=== PATIENT | female | born 1960 | race Caucasian/White ===

== ENCOUNTER → 2016-12-04 | Outpatient (CLI) | payer BC ==
[~2016-12-04] MED LIST: ATOR-54 PO; AZAT50TA17 PO; CHOL1000 PO; CHOL2000 PO; FLUT0.0529 NAE; LDXCR30 TOP; LEVO125T72 PO; LISI10TA PO; MESA1.2T PO; MESA1TAB4 PO; RMCI INJ; TRAM-10 PO; TRAZ100T29 PO; VALA1TAB2 PO; ZOLP6.252 PO
--- NOTE | 2016-12-04 13:20 | DIAGNOSTIC IMAGING REPORT ---
Brain MRA HISTORY: Aneurysm ABNORMAL HEAD MRI TECHNIQUE: 3-D [id number] MRA of the brain was performed without contrast. COMPARISON STUDY: 09/12/2016. 10/03/2016. FINDINGS: The intracranial vasculature demonstrates of the right middle cerebral to be unremarkable. There is mild tortuosity of the vasculature probably accounting for the findings in the patient's prior MRI. Study is negative for aneurysm or significant stenotic process. There is a faint blush of contrast enhancement medial to the right external auditory canal at the right cerebellopontine angle. This appears to be extra-axial and is most likely pulsation artifact. IMPRESSION: No significant stenosis, occlusion, or aneurysm within the [place]. The previously described MRI finding relates to vascular tortuosity. Electronically signed by: Nico Vega M.D. 12/04/2016 1:18 PM
== END | disposition home or self-care (01) ==
LOC: C.MRI 12:28
PROVIDERS: ATTEND Family Medicine
DX: R93.0 Abnormal findings on diagnostic imaging of skull and head, not elsewhere classified (principal)

== ENCOUNTER → 2017-02-20 | Outpatient (CLI) | payer BC ==
[~2017-02-20] MED LIST changes: -MESA1TAB4 PO; +MESA800T6 PO
[2017-02-20 11:00] LABS: BASO % 0.5 %; BASO ABS # 0.03 K/uL (0-0.2); COMPLETE YES; EOS % 2.2 %; HEMATOCRIT 42.3 % (37-47); IG% 0.2 %; LYMPH % 34.3 %; LYMPH ABS # 1.98 K/uL (1.2-3.4); MEAN CELL VOLUME 94.4 fL (80-100); MEAN CORPUSCULAR HEMOGLOBIN 31.7 pg (25-34); MEAN CORPUSCULAR HGB CONC 33.6 g/dl (32-36); MEAN PLATELET VOLUME 10.7 fL (7.4-10.4); MONO % 8.7 %; NEUT % 54.1 %; PLATELET COUNT 263 K/uL (130-400); RED BLOOD COUNT 4.48 M/uL (4.2-5.4); WHITE BLOOD COUNT 5.78 K/uL (4.8-10.8)
[2017-02-20 11:22] LABS: ALB/GLOB RATIO 0.9 (0.9-2); ALKALINE PHOSPHATASE 68 U/L (45-117); ALT/SGPT 92 U/L (12-78); AST/SGOT 53 U/L (15-37); BLOOD UREA NITROGEN 9 mg/dl (7-18); BUN/CREATININE RATIO 10.8 (10-20); C-REACTIVE PROTEIN < 0.29 mg/dl (0-0.29); CALCIUM 9.1 mg/dl (8.5-10.1); CARBON DIOXIDE 30 mmol/L (21-32); CHLORIDE 110 mmol/L (98-107); CREATININE 0.85 mg/dl (0.60-1.20); GLUCOSE 95 mg/dl (70-99); POTASSIUM 4.4 mmol/L (3.5-5.1); SODIUM 145 mmol/L (136-145)
== END | disposition home or self-care (01) ==
LOC: C.LABBC 07:43
PROVIDERS: ATTEND Internal Medicine
DX: K51.90 Ulcerative colitis, unspecified, without complications (principal); R79.82 Elevated C-reactive protein (CRP); M85.80 Other specified disorders of bone density and structure, unspecified site; E55.9 Vitamin D deficiency, unspecified; E03.9 Hypothyroidism, unspecified; E78.5 Hyperlipidemia, unspecified; Z79.52 Long term (current) use of systemic steroids

== ENCOUNTER → 2017-07-22 | Day surgery (SDC) | payer BC ==
[2017-07-10 09:02] VITALS: Ht 160 cm; Wt 77.3 kg
[~2017-07-22] VITALS: Ht 160 cm; Wt 77.3 kg
[~2017-07-22] MED LIST changes: -CHOL2000 PO; +LIDOCAINE HCL 2% 2 ML VIAL (20MG/ML) ONE; -MESA800T6 PO; +PROPOFOL IV EMULSION 10 MG/ML 20 ML VIAL IV ONE; +SODIUM CHLORIDE 0.9% 500ML 500 ML IV ONE
--- NOTE | 2017-07-22 08:41 | Endo History and Physical ---
History & Physical Date of Service: Jul 22, 2017. Chief Complaint: Ulcerative colitis Referring Physician: Dr. Zamora History of Present Illness 57 yo CF who presents for colonoscopy secondary to Ulcerative colitis. Past Medical History Arthritis, Thyroid Disease, Chronic Steroid Use Past Surgical History Hx Cardiac Surgery: No Hx Internal Defibrillator: No Hx Pacemaker: No Hx Abdominal Surgery: Yes (RONDA, APPY AND ABDOMINAL EXPLORATORY SURGERY, CRYOSURGERY) Hx of Implantable Prosthesis: No Hx Post-Op Nausea and Vomiting: No Hx Cancer Surgery: No Hx Thoracic Surgery: No Hx Orthopedic: No Hx Urinary Tract Surgery: No Family History None Social History Smoking Status: Former Smoker Hx Substance Use: No Hx Alcohol Use: Yes (OCCASIONALLY) Allergies Coded Allergies: Gluten (Verified Allergy, Unknown, gluten intolerant, 07/10/17) Sulfa Antibiotics (Unverified Allergy, Unknown, "BLOWS MY INTESTINE INTO PIECES" -PT, 07/10/17) Sulfamethoxazole w/Trimethoprim (Verified Adverse Reaction, Mild, gas, 07/10) Current Medications Reported Home Medications Medications Dose Route/Sig Max Daily Dose Days Date Category Dose Instructions Prinivil (Lisinopril) 10 Mg Tab 10 Mg PO HS 07/10/17 Reported Lialda (Mesalamine) 1.2 Gm Tab 2 Tab PO BID 90 07/10/17 Reported Imuran (Azathioprine) 50 Mg Tab 150 Mg PO HS 10/16/16 Reported Remicade (Infliximab) 100 Mg/10 Ml Inj 1 Dose INJ Q8WKS 10/03/16 Reported Ultram (Tramadol HCl) 50 Mg Tab 100 Mg PO TID 10/03/16 Reported Lidex 0.05% Cream (Fluocinonide) 90 Appln/30 Gm Cr 1 Appln TOP BID PRN 09/10/16 Reported Valtrex (Valacyclovir Hcl) 1 Gm Tab 1,000 Mg PO Q8 PRN 09/10/16 Reported 2 TABLETS EVERY 12 HOURS FOR 2 DAYS WHEN NEEDED FOR OUTBREAK Vitamin D3 (Cholecalciferol) 1,000 Unit Tab 1,000 Unit PO HS 09/10/16 Reported Trazodone (Trazodone HCl) 100 Mg Tab 100 Mg PO HS 09/10/16 Reported Lipitor (Atorvastatin) 20 Mg Tab 20 Mg PO HS 09/10/16 Reported Synthroid (Levothyroxine Sodium) 125 Mcg Tab 125 Mcg PO QAM 01/27/15 Reported Flonase (Fluticasone Propionate (Nasal)) 50 Mcg/Act Spr 2 Sprays KALYAN DAILY 01/27/15 Reported Ambien Cr (Zolpidem Tartrate) 6.25 Mg Tab 6.25 Mg PO HS PRN 03/11/12 Reported Vital Signs Weight (Kilograms): 77.27 Height (Feet): 5 Height (Inches): 3 Physical Exam General Appearance: WD/WN, no apparent distress Respiratory/Chest: Auscultation: breath sounds normal Cardiovascular: Heart Auscultation: RRR Abdomen: Bowel Sounds: normal Inspection & Palpation: soft, non-distended, no tenderness, guarding & rebound Assessment and Plan Assessment: 57 yo CF who presents for colonoscopy secondary to Ulcerative colitis. Plan: Proceed with colonoscopy.
--- NOTE | 2017-07-22 09:45 | Discharge Instructions ---
Endoscopy Patient Instructions Date / Procedure(s) Performed Jul 22, 2017. Colonoscopy Allergy Information Coded Allergies: Chocolate (Verified Allergy, Intermediate, HIVES, 07/22/17) Gluten (Verified Allergy, Unknown, gluten intolerant, 07/10/17) Sulfa Antibiotics (Verified Allergy, Unknown, "BLOWS MY INTESTINE INTO PIECES" -PT, 07/22/17) Sulfamethoxazole w/Trimethoprim (Verified Adverse Reaction, Mild, gas, 07/10) Discharge Date / Findings Jul 22, 2017. Random colon biopsies Cecal polyp Medication Instructions OK to resume all medications today as prescribed Reported Home Medications Medications Dose Route/Sig Max Daily Dose Days Date Category Dose Instructions Prinivil (Lisinopril) 10 Mg Tab 10 Mg PO HS 07/10/17 Reported Lialda (Mesalamine) 1.2 Gm Tab 2 Tab PO BID 90 07/10/17 Reported Imuran (Azathioprine) 50 Mg Tab 150 Mg PO HS 10/16/16 Reported Remicade (Infliximab) 100 Mg/10 Ml Inj 1 Dose INJ Q8WKS 10/03/16 Reported Ultram (Tramadol HCl) 50 Mg Tab 100 Mg PO TID 10/03/16 Reported Lidex 0.05% Cream (Fluocinonide) 90 Appln/30 Gm Cr 1 Appln TOP BID PRN 09/10/16 Reported Valtrex (Valacyclovir Hcl) 1 Gm Tab 1,000 Mg PO Q8 PRN 09/10/16 Reported 2 TABLETS EVERY 12 HOURS FOR 2 DAYS WHEN NEEDED FOR OUTBREAK Vitamin D3 (Cholecalciferol) 1,000 Unit Tab 1,000 Unit PO HS 09/10/16 Reported Trazodone (Trazodone HCl) 100 Mg Tab 100 Mg PO HS 09/10/16 Reported Lipitor (Atorvastatin) 20 Mg Tab 20 Mg PO HS 09/10/16 Reported Synthroid (Levothyroxine Sodium) 125 Mcg Tab 125 Mcg PO QAM 01/27/15 Reported Flonase (Fluticasone Propionate (Nasal)) 50 Mcg/Act Spr 2 Sprays KALYAN DAILY 01/27/15 Reported Ambien Cr (Zolpidem Tartrate) 6.25 Mg Tab 6.25 Mg PO HS PRN 03/11/12 Reported Provider Instructions Activity Restrictions - No exercising or heavy lifting for 24 hours. - Do not drink alcohol the day of the procedure. - Do not drive a car or operate machinery until the day after the procedure. - Do not make any important decisions or sign important papers in 24 hours after the procedure. Following Day: - Return to full activity which may include returning to work/school. Diet Start your diet with liquids and light foods (jello, soup, juice, toast). Then eat your usual diet if not nauseated. Treatment For Common After Affects For mild abdominal pain, bloating, or excessive gas: - Rest - Eat lightly - Lie on right side Follow-Up Information Follow-up with DR. WALSH as scheduled Anesthesia Information What You Should Know You have had a procedure that required some medicine to reduce anxiety and discomfort. This treatment is called moderate sedation. After receiving the treatment, you may be sleepy, but you will be able to breathe on your own. The effects of the treatment may last for several hours. Follow these instructions along with Activity/Diet recommendations noted above: * Do NOT do anything where dizziness or clumsiness would be dangerous. * Rest quietly at home today, then you can be up and about tomorrow. * Have a responsible person stay with you the rest of today. * You may have had an I.V. today. If so, you may take the dressing off later today. Recommendations Call your doctor if: * Trouble breathing * Continuous vomiting for more than 24 hours * Temperature above 101 degrees * Severe abdominal pain or bloating * Pain not relieved by pain medicine ordered * There is increased drainage or redness from any incision * A large amount of rectal bleeding greater than 2-3 tablespoons. (If you had a polyp/s removed or have hemorrhoids, a small amount of blood - from the rectum is to be expected.) * You have any unanswered questions or concerns. IN THE EVENT OF A SERIOUS EMERGENCY, GO TO THE NEAREST EMERGENCY ROOM Your discharge instructions were prepared by provider Wali Valles. Patient Instructions Signature Page Janny Max Patient (or Guardian) Signature/Date: I have read and understand the instructions given to me by my caregivers. Caregiver/RN/Doctor Signature/Date: The above-named patient and/or guardian has received patient instructions on this date. + Original Patient Signature Page (only) stays with chart. Please make copy for patient.
--- NOTE | 2017-07-22 09:51 | Anesthesiology Progress Note ---
Anesthesia Post Op Note Date & Time Jul 22, 2017 at 09:51 Vital Signs Pain Intensity: 0 Vital Signs Past 12 Hours Date Time Temp Pulse Resp B/P (MAP) Pulse Ox O2 Delivery O2 Flow Rate FiO2 07/22/17 09:31 36.6 77 20 133/70 (91) 99 Room Air 07/22/17 08:46 36.6 74 20 139/80 (99) 96 Room Air Notes Mental Status: alert / awake / arousable, participated in evaluation Pt Amnestic to Procedure: Yes Nausea / Vomiting: adequately controlled Pain: adequately controlled Airway Patency, RR, SpO2: stable & adequate BP & HR: stable & adequate Hydration State: stable & adequate Anesthetic Complications: no major complications apparent
[2017-07-22 09:59] VITALS: BP 143/80; PULSE 68; O2SAT 100
--- NOTE | 2017-07-23 00:14 | GI REPORT ---
Procedure Date: 07/22/2017 9:00 AM Procedure: Colonoscopy Indications: Disease activity assessment of chronic ulcerative pancolitis Medicines: Monitored Anesthesia Care Complications: No immediate complications. Estimated Blood Loss: Estimated blood loss: none. Procedure: Pre-Anesthesia Assessment: - Prior to the procedure, a History and Physical was performed, and patient medications and allergies were reviewed. The patient's tolerance of previous anesthesia was also reviewed. The risks and benefits of the procedure and the sedation options and risks were discussed with the patient. All questions were answered, and informed consent was obtained. Prior Anticoagulants: The patient has taken no previous anticoagulant or antiplatelet agents. ASA Grade Assessment: II - A patient with mild systemic disease. After reviewing the risks and benefits, the patient was deemed in satisfactory condition to undergo the procedure. After I obtained informed consent, the scope was passed under direct vision. Throughout the procedure, the patient's blood pressure, pulse, and oxygen saturations were monitored continuously. The scope was introduced through the anus and advanced to the terminal ileum. The colonoscopy was performed without difficulty. The patient tolerated the procedure well. The quality of the bowel preparation was good. The terminal ileum, ileocecal valve, appendiceal orifice, and rectum were photographed. Findings: A 5 mm polyp was found in the cecum. The polyp was sessile. The polyp was removed with a cold snare. Resection and retrieval were complete. Several random biopsies were obtained with cold forceps for histology in the entire colon. Impression: - One 5 mm polyp in the cecum, removed with a cold snare. Resected and retrieved. - Several random biopsies were obtained in the entire colon. Recommendation: - Resume previous diet. - Continue present medications. - Repeat colonoscopy for surveillance based on pathology results. - Return to primary care physician as previously scheduled. Wali Valles DO 07/22/2017 9:39:01 AM This report has been signed electronically. Note Initiated On: 07/22/2017 9:00 AM I attest to the content of the Intraoperative Record and orders documented therein, exceptions below
== END | disposition home or self-care (01) ==
LOC: C.GI 08:18
PROVIDERS: ATTEND Internal Medicine
DX: K51.00 Ulcerative (chronic) pancolitis without complications (principal); D12.0 Benign neoplasm of cecum; Z90.49 Acquired absence of other specified parts of digestive tract; Z87.891 Personal history of nicotine dependence

== ENCOUNTER → 2017-09-03 | Outpatient (CLI) | payer BC ==
[~2017-09-03] MED LIST changes: -LIDOCAINE HCL 2% 2 ML VIAL (20MG/ML) ONE; -PROPOFOL IV EMULSION 10 MG/ML 20 ML VIAL IV ONE; -SODIUM CHLORIDE 0.9% 500ML 500 ML IV ONE
--- NOTE | 2017-09-04 08:13 | MAMMOGRAPHY REPORT ---
BILATERAL DIGITAL SCREENING MAMMOGRAM TOMOSYNTHESIS WITH CAD: 09/03/2017 CLINICAL HISTORY: Routine screening. Patient has no complaints. TECHNIQUE: Breast tomosynthesis in addition to standard 2D mammography was performed. Current study was also evaluated with a Computer Aided Detection (CAD) system. COMPARISON: Comparison is made to exams dated: 07/19/2016 mammogram, 07/05/2015 mammogram, 05/06/2014 [place] mogram, 05/05/2013 mammogram, and 04/04/2011 mammogram - [facility]. BREAST COMPOSITION: There are scattered areas of fibroglandular density in both breasts. FINDINGS: There is a stable intramammary lymph node in the upper outer posterior right breast, and a stable nodular asymmetry in the anterior right breast that is unchanged mammographically dating back to at least 2010, therefore likely benign. No new suspicious mass, architectural distortion or clus ter of microcalcifications is seen. IMPRESSION: ACR BI-RADS CATEGORY 1: NEGATIVE There is no mammographic evidence of malignancy. A 1 year screening mammogram is recommended. The pa tient will receive written notification of the results. Approximately 10% of breast cancers are not detected with mammography. A negative mammographic report should not delay biopsy if a clinically suggestive mass is present. Dora Torres M.D. ay/:09/03/2017 16:58:21 [employer] Mill Operator: Bianca ROMO)(Juan Manuel)(BD), [facility] letter sent: Normal 1/2 BI-RADS Code: ACR BI-RADS Category 1: Negative
== END | disposition home or self-care (01) ==
LOC: C.MAMM 11:02
PROVIDERS: ATTEND Family Medicine
DX: Z12.31 Encounter for screening mammogram for malignant neoplasm of breast (principal)

== ENCOUNTER → 2017-10-21 | Outpatient (CLI) | payer BC ==
[2017-10-21 13:42] LABS: BASO % 0.7 %; BASO ABS # 0.04 K/uL (0-0.2); COMPLETE YES; IG% 0.3 %; LYMPH % 21.3 %; LYMPH ABS # 1.24 K/uL (1.2-3.4); MEAN CELL VOLUME 94.5 fL (80-100); MEAN CORPUSCULAR HEMOGLOBIN 31.8 pg (25-34); MEAN CORPUSCULAR HGB CONC 33.7 g/dl (32-36); MEAN PLATELET VOLUME 10.6 fL (7.4-10.4); MONO % 8.4 %; NEUT % 68.3 %; PLATELET COUNT 312 K/uL (130-400); RED BLOOD COUNT 4.87 M/uL (4.2-5.4); WHITE BLOOD COUNT 5.83 K/uL (4.8-10.8)
[2017-10-21 14:16] LABS: ALT/SGPT 70 U/L (12-78); AST/SGOT 47 U/L (15-37); BLOOD UREA NITROGEN 13 mg/dl (7-18); BUN/CREATININE RATIO 14.5 (10-20); CALCIUM 9.5 mg/dl (8.5-10.1); CARBON DIOXIDE 29 mmol/L (21-32); CHLORIDE 101 mmol/L (98-107); CREATININE 0.88 mg/dl (0.60-1.20); GLUCOSE 100 mg/dl (70-99); POTASSIUM 4.4 mmol/L (3.5-5.1); SODIUM 137 mmol/L (136-145)
[2017-10-21 14:19] LABS: ALKALINE PHOSPHATASE 89 U/L (45-117); C-REACTIVE PROTEIN < 0.29 mg/dl (0-0.29)
[2017-10-24 00:35] LABS: GLIADIN DEAMIDATED IgA AB 6 UNITS (<20); GLIADIN DEAMIDATED IgG AB 2 UNITS (<20); RETICULIN IgA AB Negative (Negative)
== END | disposition home or self-care (01) ==
LOC: C.LABBC 10:28
PROVIDERS: ATTEND Internal Medicine
DX: K51.90 Ulcerative colitis, unspecified, without complications (principal); L40.50 Arthropathic psoriasis, unspecified

== ENCOUNTER → 2017-10-28 | Outpatient (CLI) | payer BC ==
[2017-10-28 11:28] LABS: BLOOD UREA NITROGEN 11 mg/dl (7-18); CALCIUM 9.3 mg/dl (8.5-10.1); CARBON DIOXIDE 26 mmol/L (21-32); CHLORIDE 106 mmol/L (98-107); CHOLESTEROL 130 mg/dl (0-200); GLUCOSE 87 mg/dl (70-99); SODIUM 141 mmol/L (136-145); TRIGLYCERIDES 67 mg/dl (0-150); VERY LOW DENSITY LIPOPROT CALC 13 mg/dl
[2017-10-28 11:38] LABS: CHOLESTEROL/HDL RATIO 1.9; HDL CHOLESTEROL 70 mg/dl; LDL CHOLESTEROL CALCULATED 47 mg/dl
== END | disposition home or self-care (01) ==
LOC: C.LABBC 08:18
PROVIDERS: ATTEND Internal Medicine Endocrinology, Diabetes & Metabolism
DX: M85.80 Other specified disorders of bone density and structure, unspecified site (principal); E55.9 Vitamin D deficiency, unspecified; E78.5 Hyperlipidemia, unspecified; E27.0 Other adrenocortical overactivity; Z92.241 Personal history of systemic steroid therapy

== ENCOUNTER → 2018-03-05 | Outpatient (CLI) | payer OTHER ==
[2018-03-05 16:30] LABS: BASO % 0.5 %; BASO ABS # 0.03 K/uL (0-0.2); EOS % 1.4 %; EOS ABS # 0.08 K/uL (0-0.5); HEMOGLOBIN 13.9 g/dL (12.0-16.0); IG# 0.01 K/uL (0.00-0.02); LYMPH % 24.7 %; MEAN CELL VOLUME 95.8 fL (80-100); MEAN CORPUSCULAR HEMOGLOBIN 32.5 pg (25-34); MEAN CORPUSCULAR HGB CONC 33.9 g/dl (32-36); MEAN PLATELET VOLUME 10.1 fL (7.4-10.4); MONO % 8.6 %; MONO ABS # 0.49 K/uL (0.11-0.59); NEUT % 64.6 %; NEUT ABS # 3.66 K/uL (1.4-6.5); PLATELET COUNT 245 K/uL (130-400); RED CELL DISTRIBUTION WIDTH CV 16.1 % (11.5-14.5); RED CELL DISTRIBUTION WIDTH SD 55.8 fL (36.4-46.3); WHITE BLOOD COUNT 5.67 K/uL (4.8-10.8)
[2018-03-05 16:47] LABS: ALBUMIN 3.4 gm/dl (3.4-5.0); ALT/SGPT 53 U/L (12-78); AST/SGOT 38 U/L (15-37); BLOOD UREA NITROGEN 11 mg/dl (7-18); CALCIUM 9.1 mg/dl (8.5-10.1); CARBON DIOXIDE 28 mmol/L (21-32); CREATININE 0.77 mg/dl (0.60-1.20); GLUCOSE 102 mg/dl (70-99); POTASSIUM 3.9 mmol/L (3.5-5.1); SODIUM 137 mmol/L (136-145)
[2018-03-05 16:49] LABS: ALKALINE PHOSPHATASE 80 U/L (45-117); TOTAL PROTEIN 7.1 gm/dl (6.4-8.2)
[2018-03-07 13:07] LABS: QUANTIF MITOGEN-NIL 9.74 IU/ML; QUANTIFERON NEGATIVE (NEGATIVE); QUANTIFERON NIL 0.03 IU/ML
== END | disposition home or self-care (01) ==
LOC: C.LAB1850 15:21
PROVIDERS: ATTEND Registered Nurse
DX: K51.90 Ulcerative colitis, unspecified, without complications (principal)

== ENCOUNTER → 2018-07-08 | Outpatient (CLI) | payer OTHER ==
[2018-07-08 13:01] LABS: BASO % 0.6 %; BASO ABS # 0.03 K/uL (0-0.2); EOS % 2.2 %; EOS ABS # 0.11 K/uL (0-0.5); HEMATOCRIT 43.3 % (37-47); HEMOGLOBIN 14.4 g/dL (12.0-16.0); IG# 0.01 K/uL (0.00-0.02); LYMPH % 24.3 %; LYMPH ABS # 1.24 K/uL (1.2-3.4); MEAN CELL VOLUME 98.9 fL (80-100); MEAN CORPUSCULAR HEMOGLOBIN 32.9 pg (25-34); MEAN CORPUSCULAR HGB CONC 33.3 g/dl (32-36); MONO ABS # 0.51 K/uL (0.11-0.59); NEUT % 62.7 %; PLATELET COUNT 257 K/uL (130-400); RED CELL DISTRIBUTION WIDTH CV 16.8 % (11.5-14.5); RED CELL DISTRIBUTION WIDTH SD 60.6 fL (36.4-46.3)
[2018-07-08 13:15] LABS: ALBUMIN 3.5 gm/dl (3.4-5.0); ALKALINE PHOSPHATASE 76 U/L (45-117); ALT/SGPT 52 U/L (12-78); AST/SGOT 37 U/L (15-37); BLOOD UREA NITROGEN 11 mg/dl (7-18); CALCIUM 9.1 mg/dl (8.5-10.1); CARBON DIOXIDE 29 mmol/L (21-32); GLUCOSE 80 mg/dl (70-99); POTASSIUM 4.2 mmol/L (3.5-5.1); SODIUM 140 mmol/L (136-145); TOTAL PROTEIN 7.2 gm/dl (6.4-8.2)
== END ==
LOC: C.LABBC 10:49
PROVIDERS: ATTEND Family Medicine
DX: M25.511 Pain in right shoulder (principal); G47.9 Sleep disorder, unspecified; L40.50 Arthropathic psoriasis, unspecified

== ENCOUNTER 2022-03-11 19:01 | Observation (INO) ==
[2022-03-11] MEDS ORDERED: SODIUM CHLORIDE 0.9% 1000ML 1,000 ML IV STA (19:19)
--- NOTE | 2022-03-11 19:28 | Emergency Department Note ---
Impression & Plan Renal colic on left side ED Provider Note Provider: Yousuf Love MD DATE OF SERVICE: 03/11/2022 CHIEF COMPLAINT: Left leg pain HISTORY OF PRESENT ILLNESS: Patient is a 62-year-old female history of psoriatic arthritis and ulcerative colitis on any modifying therapy presenting here today complaining of developing 2 days left flank pain. Patient states on Saturday she did receive her Covid booster shot. Had some generalized body aches and some pain in left flank yesterday. Her body/joint aches have resolved today. They average to has couple episodes of nonbloody diarrhea but no nausea or vomiting. The pain in the left flank region has increased. Denies any trauma or heavy lifting. Denies significant radiation of the pain but states she has been urinating a bit frequently and having a little bit of suprapubic pressure. Denies significant abdominal pain. Patient did eat a hamburger that she thinks may not have been cooked the best but she is unsure. Patient has not used any medications at home for pain beyond her normal daily tramadol. REVIEW OF SYSTEMS: A total of 10 review of systems was obtained and negative except as stated above in the HPI. PAST MEDICAL HISTORY: As noted above MEDICATIONS: Reviewed home medication list SOCIAL HISTORY: Lives at home PHYSICAL EXAM: GENERAL: alert and oriented in no acute distress on stretcher Head: normocephalic and atraumatic EYES: No injection, discharge or icterus. NECK: Trachea midline. LUNGS: Airway patent. No retractions. Breath sounds clear with good air entry bilaterally. HEART: Regular rate and rhythm. No chest wall tenderness ABDOMEN: Soft and non-tender, without guarding or rebound. BACK: No midline tenderness. No bilateral flank tenderness. SKIN: Acyanotic, warm, dry, without rashes EXTREMITIES: Without swelling, tenderness or deformity NEUROLOGICAL: No focal deficits. No aphasia. No facial droop or slurred speech. Ambulatory. Patient's laboratory studies and imaging reviewed. Differential includes Renal colic, UTI, appendicitis, diverticulitis, mesenteric ischemia, aortic pathology, infections, inflammatory bowel disease, PUD, biliary pathology, as well as other pathologies. IMPRESSION/MEDICAL DECISION MAKING: Patient history of psoriatic arthritis as well as ulcerative colitis on immunomodulator therapy. Afebrile upon arrival. Patient with some nontender left flank pain. Did receive Covid booster 2 days ago but generalized body aches from that have resolved. Reports little bit of suprapubic pressure and urinary frequency. Urine sample was sent. Basic labs obtained. CT scan of the abdomen pelvis to look for intra-abdominal complications are possible kidney related pathology was sent. No trauma history lifting history and no radiation of the symptoms to the legs to indicate spinal pathology. Patient initially declines any pain medication. Blood work here with very slight white blood cell count of 11.26. No anemia. No thrombocytopenia. Urinalysis not impressive for infection. Chemistries without concerning finding electrolyte abnormalities, hepatitis, or pancreatitis. It does appear slightly elevated compared to previous from December of this year at 1.37. Later complained of onset of significant worsened left flank pain. Given morphine and Zofran. CT report as detailed below shows a left UVJ stone with some hydronephrosis likely explaining her symptoms. Informed the patient and make her aware of need for urological follow-up given some thickening of the bladder to exclude any malignancy in the area of the UVJ. Patient later with Dilaudid had some improvement of her pain but still states she will come to going home. Given a dose of Flomax. She acknowledged the need for urology follow-up given the latter findings. She wished for observation. Hospitalist was contacted. DIAGNOSIS: Left kidney stone with renal colic DISPOSITION: Hospitalist will evaluate Patient was agreeable with this plan. Past Med/Surg History Medical History Depression History of bacterial meningitis History of endometriosis History of GI bleed Hx of adenomatous colonic polyps Hx of ankylosing spondylitis Hx of psoriatic arthritis Hyperlipidemia Hypertension Hypothyroidism Migraine Osteoarthritis Perirectal abscess Sinus congestion Sleep apnea Ulcerative colitis Surgical History History of appendectomy History of cholecystectomy History of colonoscopy History of cryosurgery History of nasal surgery History of shoulder surgery History of tooth extraction Hx of exploratory laparotomy Family History Grandfather No problems noted. Father Hearing loss Heart disease Hypertension Mother Heart disease Hypertension Stroke Grandfather (Maternal) Family history of diabetes mellitus Other No family history of bleeding disorder Social History Smoking Status: Never smoker packs per day: 0.25; Years Smoked: 15; Second Hand Exposure: No; Hx Alcohol Use: Yes Alcohol type: wine and hard liquor Alcohol Intake Frequency Comment: 2 drinks 2-3x/month Hx Substance Use: No Preferred Language: Latvian Communication Ability: Effective Performance Architect Required: No Beliefs That Will Affect Care: None marital status: Single Current Living Situation: Alone current occupational status: employed current occupation: Professor How many Children do You have: 0 Feels Safe at Home: Yes Assistive Devices: CPAP and Glasses Allergies Allergies Allergy/AdvReac Type Severity Reaction Status Date / Time chocolate flavor Allergy Unknown HIVES Verified 03/11/22 23:26 Bactrim AdvReac Mild gas Verified 07/22/17 08:57 gluten AdvReac Unknown gluten Verified 03/11/22 23:26 intolerant Sulfa (Sulfonamide AdvReac Unknown Gastrointestinal Verified 03/11/22 23:26 Antibiotics) Upset sulfamethoxazole AdvReac Unknown Gastrointestinal Verified 03/11/22 23:26 Upset trimethoprim AdvReac Unknown Gastrointestinal Verified 03/11/22 23:26 Upset Home Meds Home Medications Medication Instructions Recorded Confirmed cholecalciferol (vitamin D3) 25 1,000 unit PO 08/18/18 03/11/22 mcg (1,000 unit) capsule (Vitamin D3) lisinopril 10 mg tablet 10 mg PO QAM 08/18/18 03/11/22 trazodone 100 mg tablet 100 mg PO HS 08/18/18 03/11/22 valacyclovir 1 gram tablet 1,000 mg PO UD PRN 08/18/18 03/11/22 (Valtrex) vitamin B complex (B 1 tab PO QAM 09/11/19 03/11/22 Complex-Vitamin B12) infliximab 100 mg intravenous 100 mg IV UD 10/06/19 03/11/22 solution (Remicade) leflunomide 10 mg tablet (Arava) 10 mg PO UD tab 01/11/20 03/11/22 bupropion HCl 300 mg 24 hr tablet, 300 mg PO QAM 08/18/20 03/11/22 extended release (Wellbutrin XL) rosuvastatin 20 mg tablet (Crestor) 20 mg PO HS 08/18/20 03/11/22 gabapentin 100 mg capsule 100 mg PO QAM 03/11/22 03/11/22 ipratropium bromide 42 mcg (0.06 2 spray INTRANASAL HS 03/11/22 03/11/22 %) nasal spray levothyroxine 100 mcg tablet 100 mcg PO DAILYBB 03/11/22 03/11/22 (Synthroid) mesalamine 1.2 gram tablet,delayed 2.4 g PO BID 03/11/22 03/11/22 release metformin 500 mg tablet,extended 1,000 mg PO . ON HOLD 03/11/22 03/11/22 release 24 hr tramadol 50 mg tablet 50 - 100 mg PO TID PRN 03/11/22 03/11/22 Results & Data (ED) Vital Signs Vital Signs - 24 hr 03/11/22 19:04 03/11/22 19:41 03/11/22 20:02 Temperature 36.8 C Temperature Source Temporal Artery Scan Pulse Rate 102 H 87 Pulse Rate [Right Finger] 87 Pulse Rhythm Regular Pulse Rhythm [Right Finger] Regular Pulse Strength Normal Pulse Strength [Right Finger] Normal Respiratory Rate 20 18 16 Respiratory Effort / Characteristics Non-Labored Spontaneous Non-Labored Respiratory Depth Normal Normal Respiratory Pattern Regular Regular Blood Pressure 142/90 H Blood Pressure [Right Arm] 155/104 H Blood Pressure Mean 107 Blood Pressure Mean [Right Arm] 121 Blood Pressure Position Sitting Blood Pressure Position [Right Arm] Sitting Pulse Oximetry 94 94 96 Oxygen Delivery Method Room Air Room Air Room Air Sepsis Recent Fever Within 48 Hours No Sepsis New/Unexplained Change in Mental Status N/A Sepsis Action Taken by Nursing No Action Required 03/11/22 21:09 03/12/22 00:18 Temperature Temperature Source Pulse Rate Pulse Rate [Right Finger] 93 H 104 H Pulse Rhythm Pulse Rhythm [Right Finger] Regular Pulse Strength Pulse Strength [Right Finger] Normal Respiratory Rate 22 16 Respiratory Effort / Characteristics Non-Labored Spontaneous Respiratory Depth Normal Respiratory Pattern Regular Blood Pressure Blood Pressure [Right Arm] 154/101 H 134/83 Blood Pressure Mean Blood Pressure Mean [Right Arm] 118 100 Blood Pressure Position Blood Pressure Position [Right Arm] Semi-fowlers Pulse Oximetry 96 95 Oxygen Delivery Method Room Air Room Air Sepsis Recent Fever Within 48 Hours Sepsis New/Unexplained Change in Mental Status Sepsis Action Taken by Nursing Laboratory Data Result diagrams: 03/11/22 19:47 03/11/22 19:47 Lab Results 03/11/22 03/11/22 03/11/22 Range/Units 18:40 19:47 19:47 WBC 11.26 H (4.8-10.8) K/uL RBC 4.59 (4.2-5.4) M/uL Hgb 13.7 (12.0-16.0) g/dL Hct 41.7 (37-47) % MCV 90.8 (80-100) fL MCH 29.8 (25-34) pg MCHC 32.9 (32-36) g/dL RDW Std Deviation 47.1 H (36.4-46.3) fL RDW Coeff of Ronny 14.3 (11.5-14.5) % Plt Count 212 (130-400) K/uL MPV 10.5 H (7.4-10.4) fL Immature Gran % (Auto) 0.4 % Neut % (Auto) 75.3 % Lymph % (Auto) 9.1 % Noble % (Auto) 13.2 % Eos % (Auto) 1.7 % Baso % (Auto) 0.3 % Neut # (Auto) 8.49 H (1.4-6.5) K/uL Lymph # (Auto) 1.02 L (1.2-3.4) K/uL Noble # (Auto) 1.49 H (0.11-0.59) K/uL Eos # (Auto) 0.19 (0-0.5) K/uL Baso # (Auto) 0.03 (0-0.2) K/uL Immature Gran # (Auto) 0.04 H (0.00-0.02) K/uL Sodium 136 (136-145) mmol/L Potassium 4.1 (3.5-5.1) mmol/L Chloride 104 (98-107) mmol/L Carbon Dioxide 24 (21-32) mmol/L Anion Gap 8 (3-11) BUN 16 (6-23) mg/dl Creatinine 1.37 H (0.6-1.2) mg/dl Est Cr Clr Drug Dosing 43.5 ml/min Est GFR ( Amer) 48.1 ml/min Est GFR (Non-Af Amer) 41.5 ml/min BUN/Creatinine Ratio 11.7 (10-20) Glucose 96 (70-99(Fasting)) mg/dl Calcium 9.8 (8.5-10.1) mg/dl Total Bilirubin 0.4 (0.2-1.0) mg/dl AST 26 (13-39) U/L ALT 29 (7-52) U/L Alkaline Phosphatase 61 (34-104) U/L Total Protein 6.9 (6.0-8.3) gm/dl Albumin 4.1 (3.4-5.0) gm/dl Globulin 2.8 (2.5-4.0) gm/dl Albumin/Globulin Ratio 1.5 (0.9-2) Lipase 25 (11-82) U/L Urine Color Yellow Urine Appearance Clear (Clear) Urine pH 5.0 (4.5-7.5) Ur Specific [place] 1.011 (1.000-1.030) Urine Protein Negative (Negative) Urine Glucose (UA) Negative (Negative) Urine Ketones Negative (Negative) Urine Blood Trace H (Negative) Urine Nitrite Negative (Negative) Urine Bilirubin Negative (Negative) Urine Urobilinogen Negative (Negative) Ur Leukocyte Esterase Trace H (Negative) Urine WBC (Auto) 1-5 (0-5) /hpf Urine RBC (Auto) 0-4 (0-4) /hpf U Hyaline Cast (Auto) 0 (0-5) /lpf U Epithel Cells (Auto) 10-20 H (0-5) /lpf Urine Bacteria (Auto) Negative (Negative) SARS-CoV-2, RNA, NAAT (NEGATIVE) 03/12/22 Range/Units 00:20 WBC (4.8-10.8) K/uL RBC (4.2-5.4) M/uL Hgb (12.0-16.0) g/dL Hct (37-47) % MCV (80-100) fL MCH (25-34) pg MCHC (32-36) g/dL RDW Std Deviation (36.4-46.3) fL RDW Coeff of Ronny (11.5-14.5) % Plt Count (130-400) K/uL MPV (7.4-10.4) fL Immature Gran % (Auto) % Neut % (Auto) % Lymph % (Auto) % Noble % (Auto) % Eos % (Auto) % Baso % (Auto) % Neut # (Auto) (1.4-6.5) K/uL Lymph # (Auto) (1.2-3.4) K/uL Noble # (Auto) (0.11-0.59) K/uL Eos # (Auto) (0-0.5) K/uL Baso # (Auto) (0-0.2) K/uL Immature Gran # (Auto) (0.00-0.02) K/uL Sodium (136-145) mmol/L Potassium (3.5-5.1) mmol/L Chloride (98-107) mmol/L Carbon Dioxide (21-32) mmol/L Anion Gap (3-11) BUN (6-23) mg/dl Creatinine (0.6-1.2) mg/dl Est Cr Clr Drug Dosing ml/min Est GFR ( Amer) ml/min Est GFR (Non-Af Amer) ml/min BUN/Creatinine Ratio (10-20) Glucose (70-99(Fasting)) mg/dl Calcium (8.5-10.1) mg/dl Total Bilirubin (0.2-1.0) mg/dl AST (13-39) U/L ALT (7-52) U/L Alkaline Phosphatase (34-104) U/L Total Protein (6.0-8.3) gm/dl Albumin (3.4-5.0) gm/dl Globulin (2.5-4.0) gm/dl Albumin/Globulin Ratio (0.9-2) Lipase (11-82) U/L Urine Color Urine Appearance (Clear) Urine pH (4.5-7.5) Ur Specific [place] (1.000-1.030) Urine Protein (Negative) Urine Glucose (UA) (Negative) Urine Ketones (Negative) Urine Blood (Negative) Urine Nitrite (Negative) Urine Bilirubin (Negative) Urine Urobilinogen (Negative) Ur Leukocyte Esterase (Negative) Urine WBC (Auto) (0-5) /hpf Urine RBC (Auto) (0-4) /hpf U Hyaline Cast (Auto) (0-5) /lpf U Epithel Cells (Auto) (0-5) /lpf Urine Bacteria (Auto) (Negative) SARS-CoV-2, RNA, NAAT NEGATIVE (NEGATIVE) Administered Medications Discontinued Medications Acetaminophen (Acetaminophen 500 Mg Tab) 1,000 mg PO NOW STA Stop: 03/11/22 22:37 Last Admin: 03/11/22 22:42 Dose: 1,000 mg Documented by: [id number] Hydromorphone HCl (Hydromorphone Inj 1 Mg/Ml Syringe) 0.5 mg IV NOW STA Stop: 03/11/22 21:56 Last Admin: 03/11/22 22:43 Dose: 0.5 mg Documented by: [id number] Sodium Chloride (Nss 1000ml) 1,000 mls @ 999 mls/hr IV .Q1H1M STA Stop: 03/11/22 20:19 Last Infusion: 03/11/22 20:42 Dose: 0 mls/hr Documented by: [id number] Admin: 03/11/22 19:41 Dose: 999 mls/hr Documented by: [id number] Ioversol (Optiray 320 100ml) 94 ml IV ONCE ONE Stop: 03/11/22 20:52 Last Admin: 03/11/22 20:52 Dose: 94 ml Documented by: [id number] Morphine Sulfate (Morphine Sulfate 4 Mg/Ml 1 Ml Carp\Vial) 4 mg IV NOW STA Stop: 03/11/22 21:16 Last Admin: 03/11/22 21:20 Dose: 4 mg Documented by: [id number] Ondansetron HCl (Ondansetron Inj 2 Mg/Ml 2 Ml Vial) 4 mg IV NOW STA Stop: 03/11/22 21:16 Last Admin: 03/11/22 21:20 Dose: 4 mg Documented by: [id number] Tamsulosin HCl (Tamsulosin Hcl 0.4 Mg Cap) 0.4 mg PO NOW ONE Stop: 03/12/22 00:12 Last Admin: 03/12/22 00:17 Dose: 0.4 mg Documented by: [id number] Discharge Plan Visit Data Chief Complaint: Flank Pain Stated Complaint: L FLANK PAIN, FREQUENT URINATION, PRESSURE ED Provider: Yousuf Love Discharge Problem: Renal colic on left side Patient Disposition: Being Evaluated by Hospitalist Forms Stand Alone Forms: My [facility] Prescriptions Prescriptions: No Action Remicade 100 mg recon soln 100 mg IV UD RF: 0 rosuvastatin [Crestor] 20 mg tablet 20 mg PO HS RF: 0 vitamin B complex [B Complex-Vitamin B12] tablet 1 tab PO QAM RF: 0 trazodone 100 mg Tablet 100 mg PO HS RF: 0 lisinopril 10 mg Tablet 10 mg PO QAM RF: 0 cholecalciferol (vitamin D3) [Vitamin D3] 1,000 unit Capsule 1,000 unit PO HS RF: 0 valacyclovir [Valtrex] 1 gram Tablet 1,000 mg PO UD PRN (Reason: Cold Sores) RF: 0 leflunomide [Arava] 10 mg tablet 10 mg PO UD RF: 0 bupropion HCl [Wellbutrin XL] 300 mg Tablet Extended Release 24 Hr 300 mg PO QAM RF: 0 mesalamine 1.2 gram tablet,delayed release (DR/EC) 2.4 g PO BID RF: 0 tramadol 50 mg tablet 50 - 100 mg PO TID PRN (Reason: Pain) RF: 0 levothyroxine [Synthroid] 100 mcg tablet 100 mcg PO DAILYBB RF: 0 gabapentin 100 mg capsule 100 mg PO QAM RF: 0 metformin 500 mg tablet extended release 24 hr 1,000 mg PO . ON HOLD RF: 0 ipratropium bromide 42 mcg (0.06 %) spray,non-aerosol 2 spray intranasal HS RF: 0 Referrals Referrals: Katharine Zamora DO [Primary Care Provider] -
[2022-03-11 20:01] LABS: Appearance Urine Clear (Clear); Bacteria Urine Automated Negative (Negative); Bilirubin Urine Negative (Negative); Blood Urine Trace (Negative); Cast Urine Automated 0 /lpf (0-5); Color Urine Yellow; Glucose Urine UA Negative (Negative); Ketones Urine Negative (Negative); Leukocyte Esterase Urine Trace (Negative); Nitrite Urine Negative (Negative); Protein Urine Negative (Negative); RBC Urine Automated 0-4 /hpf (0-4); Specific Gravity Urine 1.011 (1.000-1.030); Urobilinogen Urine Negative (Negative)
[2022-03-11 20:01] LABS: Basophils # (auto) 0.03 K/uL (0-0.2); Basophils % (auto) 0.3 %; Eosinophils # (auto) 0.19 K/uL (0-0.5); Eosinophils % (auto) 1.7 %; Hematocrit (blood only) 41.7 % (37-47); Hemoglobin 13.7 g/dL (12.0-16.0); Immature Granulocytes # (auto) 0.04 K/uL (0.00-0.02); Immature Granulocytes % (auto) 0.4 %; Lymphocytes # (auto) 1.02 K/uL (1.2-3.4); Lymphocytes % (auto) 9.1 %; Mean Corpuscular Hemoglobin 29.8 pg (25-34); Mean Corpuscular Hgb Conc 32.9 g/dL (32-36); Mean Corpuscular Volume 90.8 fL (80-100); Mean Platelet Volume 10.5 fL (7.4-10.4); Monocytes # (auto) 1.49 K/uL (0.11-0.59); Monocytes % (auto) 13.2 %; Neutrophils # (auto) 8.49 K/uL (1.4-6.5); Neutrophils % (auto) 75.3 %; Platelet Count 212 K/uL (130-400); RDW Coefficient of Variation 14.3 % (11.5-14.5); RDW Standard Deviation 47.1 fL (36.4-46.3); Red Blood Count 4.59 M/uL (4.2-5.4); White Blood Count 11.26 K/uL (4.8-10.8)
[2022-03-11 20:33] LABS: Albumin Globulin Ratio 1.5 (0.9-2); Albumin Level 4.1 gm/dl (3.4-5.0); BUN Creatinine Ratio 11.7 (10-20); Bilirubin,Total 0.4 mg/dl (0.2-1.0); Calcium 9.8 mg/dl (8.5-10.1); Creatinine Clr Calc Pharmacy 43.5 ml/min; Est GFR (African American) 48.1 ml/min; Est GFR (Non-African American) 41.5 ml/min; Globulin 2.8 gm/dl (2.5-4.0); Potassium 4.1 mmol/L (3.5-5.1); Total Protein 6.9 gm/dl (6.0-8.3)
[2022-03-11] MEDS ORDERED: OPTIRAY 320 100ml IV ONE (20:51)
[2022-03-11] MEDS ORDERED: MoRPHine SULFATE 4 MG/ML 1 ML CARP\\VIAL IV STA (21:15)
[2022-03-11] MEDS ORDERED: ONDANSETRON INJ 2 MG/ML 2 ML VIAL IV STA (21:15)
[2022-03-11] MEDS ORDERED: HYDROmorphone INJ 1 MG/ML SYRINGE IV STA (21:55)
[2022-03-11] MEDS ORDERED: ACETAMINOPHEN 500 MG TAB PO STA (22:36)
[2022-03-12] MEDS ORDERED: TAMSULOSIN HCL 0.4 MG CAP PO ONE (00:11)
--- NOTE | 2022-03-12 01:16 | Urology Consultation ---
Date of Consultation March 12, 2022 Assessment & Plan (1) Renal colic on left side: The patient is being admitted on the hospitalist service. We recommend proceeding as follows: Provide analgesics Provide antiemetics Provide IV fluid for hydration The patient is noted to have acute kidney injury and this may be on the basis of dehydration. Avoid nephrotoxins and follow serial labs along with provide hydration as noted above Continue Flomax for expulsive therapy. This was administered by treating emergency room physician Make the patient n.p.o. for the present time. If she continues to have persistent pain cystoscopic intervention may be required. At the present time I do not feel this is required as the patient is quite comfortable and her pain is well controlled. She is also noted to be afebrile. Additional recommendations be forthcoming based on her clinical course as it unfolds History of Present Illness Reason for Consultation: Nephrolithiasis History of Present Illness Is a 62-year-old female who presented to the emergency department secondary to left flank pain that began approximately 2 days ago. Patient notes that in addition to being in the left flank the pain radiates to the left groin. Patient denies any fevers, shakes, or chills. She denies any dysuria or hematuria. Patient notes that the pain is palliated with medicines that were ministered emergency department and did not note any provocative factors. She reports no prior history of kidney stones. Because of her unremitting symptoms she presented to the emergency department. Today in the emergency department patient had labs and imaging which independent reviewed. CT scan of the abdomen and pelvis showed the patient had a 4 mm kidney stone at the left ureterovesical junction resulting in mild hydronephrosis and perinephric stranding. Labs included a CBC her white blood cell count was 11.2. Hemoglobin, hematocrit, and platelet count are all within normal range. Chemistry profile showed sodium, potassium, and BUN within were within the normal range. Her creatinine had a slight elevation at 1.37 which was above her baseline which usually runs about 0.8-0.9. Urinalysis was performed that showed no bacteria and no nitrites. There is trace leukocyte esterase and only 1-5 white blood cells per high-power field. A Covid test was performed and was noted to be negative. At the time of interview the patient notes that her pain had markedly improved with the pain medicines that were administered by the treating emergency room physician and she was in no distress. Allergies Allergy/AdvReac Type Severity Reaction Status Date / Time chocolate flavor Allergy Unknown HIVES Verified 03/11/22 23:26 Bactrim AdvReac Mild gas Verified 07/22/17 08:57 gluten AdvReac Unknown gluten Verified 03/11/22 23:26 intolerant Sulfa (Sulfonamide AdvReac Unknown Gastrointestinal Verified 03/11/22 23:26 Antibiotics) Upset sulfamethoxazole AdvReac Unknown Gastrointestinal Verified 03/11/22 23:26 Upset trimethoprim AdvReac Unknown Gastrointestinal Verified 03/11/22 23:26 Upset Home Medications Medication Instructions Recorded Confirmed Type cholecalciferol (vitamin D3) 25 1,000 unit PO HS 08/18/18 03/11/22 History mcg (1,000 unit) capsule (Vitamin D3) lisinopril 10 mg tablet 10 mg PO QAM 08/18/18 03/11/22 History trazodone 100 mg tablet 100 mg PO HS 08/18/18 03/11/22 History valacyclovir 1 gram tablet 1,000 mg PO UD PRN 08/18/18 03/11/22 History (Valtrex) vitamin B complex (B 1 tab PO QAM 09/11/19 03/11/22 History Complex-Vitamin B12) infliximab 100 mg intravenous 100 mg IV UD 10/06/19 03/11/22 History solution (Remicade) leflunomide 10 mg tablet (Arava) 10 mg PO UD tab 01/11/20 03/11/22 History bupropion HCl 300 mg 24 hr tablet, 300 mg PO QAM 08/18/20 03/11/22 History extended release (Wellbutrin XL) rosuvastatin 20 mg tablet (Crestor) 20 mg PO HS 08/18/20 03/11/22 History gabapentin 100 mg capsule 100 mg PO QAM 03/11/22 03/11/22 History ipratropium bromide 42 mcg (0.06 2 spray INTRANASAL HS 03/11/22 03/11/22 History %) nasal spray levothyroxine 100 mcg tablet 100 mcg PO DAILYBB 03/11/22 03/11/22 History (Synthroid) mesalamine 1.2 gram tablet,delayed 2.4 g PO BID 03/11/22 03/11/22 History release metformin 500 mg tablet,extended 1,000 mg PO . ON HOLD 03/11/22 03/11/22 History release 24 hr tramadol 50 mg tablet 50 - 100 mg PO TID PRN 03/11/22 03/11/22 History Patient History Medical History Depression History of bacterial meningitis 2017, CAUSE: LYSTERIA History of endometriosis History of GI bleed 6-7 YR AGO Hx of adenomatous colonic polyps AT AGE 51 REMOVED Hx of ankylosing spondylitis UPPER AND LOWER BACK-SOME LIMITED ROM NECK Hx of psoriatic arthritis F/U [facility] Hyperlipidemia Hypertension Hypothyroidism Migraine OPTIC MIGRAINES Osteoarthritis Perirectal abscess ANTIBIOTIC FINISHED 02/26/21 - NOT HEALED - F/U WITH PCP TODAY Sinus congestion FOLLOWS WITH DR. BUENO Sleep apnea CPAP Ulcerative colitis Surgical History History of appendectomy History of cholecystectomy History of colonoscopy WITH POLYPECTOMY History of cryosurgery CERVIX-PRECANCEROUS CELLS History of nasal surgery bilateral inferior turbinate reduction-04/14/21-Dr. Bueno History of shoulder surgery LEFT SHOULDER MANIPULATION History of tooth extraction Hx of exploratory laparotomy for endometriosis Family History Grandfather No problems noted. Father Hearing loss Heart disease Hypertension Mother Heart disease Hypertension Stroke Grandfather (Maternal) Family history of diabetes mellitus Other No family history of bleeding disorder Social History Smoking Status: Never smoker packs per day: 0.25; Years Smoked: 15; Second Hand Exposure: No; Hx Alcohol Use: Yes Alcohol type: wine and hard liquor Alcohol Intake Frequency Comment: 2 drinks 2-3x/month Hx Substance Use: No Preferred Language: Spanish Communication Ability: Effective Dental Financial Coordinator Required: No Beliefs That Will Affect Care: None marital status: Single Current Living Situation: Alone current occupational status: employed current occupation: Professor How many Children do You have: 0 Feels Safe at Home: Yes Assistive Devices: CPAP and Glasses Review of Systems Constitutional: no fever and no chills Eyes: + corrective lenses Ear, Nose, Mouth, Throat: no ear pain Respiratory: no cough and no dyspnea Cardiovascular: no chest pain Gastrointestinal: no abdominal pain, no nausea and no vomiting Genitourinary: + flank pain (Left-sided) Musculoskeletal: + back pain (Left-sided flank pain) Integumentary: no rash Neurologic: no localized weakness Physical Exam Constitutional: WD/WN, vitals as above Eyes: no conjunctival abnormality ENMT: Ears: no hearing impairment and no external ear abnormality Mouth: no oropharynx abnormality Neck: trachea midline Respiratory: normal respiratory effort; no respiratory distress and no labored breathing Cardiovascular: Rate/Rhythm: regular rate and regular rhythm Gastrointestinal (Abdomen): Soft, nontender, nondistended Musculoskeletal: No calf tenderness Skin: no rashes Neurologic: moves all extremities Psychiatric: A+Ox3, euthymic affect Genitourinary: + CVA tenderness (Minimal left flank pain with percussion) Results & Data ([facility]) Vital Signs (Past 12 Hours) Vital Signs Temp Pulse Pulse Resp BP BP Pulse Ox 03/12/22 00:18 104 H 16 134/83 95 03/11/22 21:09 93 H 22 154/101 H 96 03/11/22 20:02 87 16 155/104 H 96 03/11/22 19:41 87 18 94 03/11/22 19:04 36.8 C 102 H 20 142/90 H 94 PG Care Time/CCT Total # of Minutes Spent Total Time Spent with Patient: Total time spent is greater than 50% in coordination of care (as documented) at patient's floor/unit and/or counseling patient: Coding Level of Care Code 53593 Inpt Consult Level 5 Diagnoses Renal colic on left side N23
--- NOTE | 2022-03-12 01:42 | History & Physical Report ---
Date of Service March 12, 2022 Assessment & Plan (1) Renal colic on left side: Plan: 62-year-old female presenting with 4 mm renal stone at left ureterovesicular junction, hydronephrosis and perinephric stranding. No prior history of renal stones. Patient is nontoxic in appearance. She is afebrile but does have an elevated WBC count of 11.26 with mild elevation of neutrophillymphocyte ratio. Patient is on immunosuppressive therapy with Infliximab Admit to medical Strain all urine IV fluids with LR at 125 mL/h x 2 L Zofran as needed for nausea Morphine as needed for pain Continue home tramadol 50 mg p.o. 3 times daily as needed Flomax 0.4 mg daily UA is not suggestive of infection however, patient on immunosuppressive therapy with elevated WBC count, report of elevated temperature and obstructing stone will initiate treatment with ceftriaxone 1 g IV daily Urology consultation appreciated (2) MAGED (acute kidney injury): Plan: Creatinine = 1.37 from 0.77. Patient reports she is urinating without difficulty LR at 125 mL/h x 2 L Repeat chemistry in a.m. Avoid nephrotoxic agents Renal dosing where needed (3) Ankylosing spondylitis: Plan: Patient on infliximab (4) [place] ulcerative colitis: Plan: Patient on infliximab and mesalamine Continue home agents (5) Psoriatic arthropathy: Plan: Patient on infliximab and leflunomide Continue home therapies Continue gabapentin (6) Depression: Plan: Chronic. Well-controlled on medications Continue Wellbutrin 300 mg p.o. every morning Insomnia Continue trazodone 100 mg p.o. nightly (7) Hyperlipidemia: Plan: Chronic. On medications Continue Crestor (8) Hypertension: Plan: Blood pressure stable We will hold lisinopril in setting of mild creatinine elevation IV fluids with repeat labs in the morning (9) Hypothyroidism: Plan: Chronic. Stable. TSH = 0.928 on 09/13/2021 Continue Synthroid 100 mcg p.o. daily Check TSH with a.m. labs Plan: FENLR at 125 mL/h x 2 L, electrolytes within normal limits, monitoring renal function as above, n.p.o. for now Prophylaxispatient is low risk for DVT, encourage ambulation Codefull per discussion with patient Dispositionadmit to medical History of Present Illness Chief Complaint: Left flank pain Primary Care Provider: DO Janny Burks Arbaugh is a pleasant 62-year-old female with history of ankylosing spondylitis, psoriatic arthritis and ulcerative colitis on Infliximab infusions q 8 weeks as well as hypertension, hyperlipidemia hypothyroidism presenting with left flank pain. Patient received her second Covid booster on Saturday. She reports having full body pain and joint pain on Saturday which resolved. When she woke this morning she had significant left flank pain which progressed throughout the day. Pain is nonradiating, located in the lower back on the left side, 10/10 in severity. She denies nausea/vomiting. Denies dysuria/hematuria/hesitancy but does report some bladder pressure. Denies fevers but states that her body temperature is approximately 2 degrees higher than baseline (usually 97, measured at home this afternoon her temperature was 99.4). Patient with no prior history of renal stones. In the ER she is afebrile, mildly tachycardic at 105 otherwise hemodynamically stable. Work-up revealed mild elevation of WBC = 11.26, mild elevation of creatinine to 1.37 from baseline of 0.77. CT of the abdomen revealed a 4 mm left ureterovesicular calculus with mild hydronephrosis and stranding as well as bladder wall thickening. ER course: Normal saline solution, morphine 4 mg IV, Zofran 4 mg IV, acetaminophen 1000 mg p.o., hydromorphone 0.5 mg IV, tamsulosin 0.4 mg p.o. Allergies Allergy/AdvReac Type Severity Reaction Status Date / Time chocolate flavor Allergy Unknown HIVES Verified 03/11/22 23:26 Bactrim AdvReac Mild gas Verified 07/22/17 08:57 gluten AdvReac Unknown gluten Verified 03/11/22 23:26 intolerant Sulfa (Sulfonamide AdvReac Unknown Gastrointestinal Verified 03/11/22 23:26 Antibiotics) Upset sulfamethoxazole AdvReac Unknown Gastrointestinal Verified 03/11/22 23:26 Upset trimethoprim AdvReac Unknown Gastrointestinal Verified 03/11/22 23:26 Upset Home Medications Medication Instructions Recorded Confirmed Type cholecalciferol (vitamin D3) 25 1,000 unit PO HS 08/18/18 03/11/22 History mcg (1,000 unit) capsule (Vitamin D3) lisinopril 10 mg tablet 10 mg PO QAM 08/18/18 03/11/22 History trazodone 100 mg tablet 100 mg PO HS 08/18/18 03/11/22 History valacyclovir 1 gram tablet 1,000 mg PO UD PRN 08/18/18 03/11/22 History (Valtrex) vitamin B complex (B 1 tab PO QAM 09/11/19 03/11/22 History Complex-Vitamin B12) infliximab 100 mg intravenous 100 mg IV UD 10/06/19 03/11/22 History solution (Remicade) leflunomide 10 mg tablet (Arava) 10 mg PO UD tab 01/11/20 03/11/22 History bupropion HCl 300 mg 24 hr tablet, 300 mg PO QAM 08/18/20 03/11/22 History extended release (Wellbutrin XL) rosuvastatin 20 mg tablet (Crestor) 20 mg PO HS 08/18/20 03/11/22 History gabapentin 100 mg capsule 100 mg PO QAM 03/11/22 03/11/22 History ipratropium bromide 42 mcg (0.06 2 spray INTRANASAL HS 03/11/22 03/11/22 History %) nasal spray levothyroxine 100 mcg tablet 100 mcg PO DAILYBB 03/11/22 03/11/22 History (Synthroid) mesalamine 1.2 gram tablet,delayed 2.4 g PO BID 03/11/22 03/11/22 History release metformin 500 mg tablet,extended 1,000 mg PO . ON HOLD 03/11/22 03/11/22 History release 24 hr tramadol 50 mg tablet 50 - 100 mg PO TID PRN 03/11/22 03/11/22 History Past Med/Surg History Medical History (Updated 03/12/22 @ 01:39 by Maria D Alegria DO) Depression History of bacterial meningitis 2017, CAUSE: LYSTERIA History of endometriosis History of GI bleed 6-7 YR AGO Hx of adenomatous colonic polyps AT AGE 51 REMOVED Hx of ankylosing spondylitis UPPER AND LOWER BACK-SOME LIMITED ROM NECK Hx of psoriatic arthritis F/U [facility] Hyperlipidemia Hypertension Hypothyroidism Migraine OPTIC MIGRAINES Osteoarthritis Perirectal abscess ANTIBIOTIC FINISHED 02/26/21 - NOT HEALED - F/U WITH PCP TODAY Sinus congestion FOLLOWS WITH DR. DOE Sleep apnea CPAP Ulcerative colitis Surgical History History of appendectomy History of cholecystectomy History of colonoscopy WITH POLYPECTOMY History of cryosurgery CERVIX-PRECANCEROUS CELLS History of nasal surgery bilateral inferior turbinate reduction-04/14/21-Dr. Doe History of shoulder surgery LEFT SHOULDER MANIPULATION History of tooth extraction Hx of exploratory laparotomy for endometriosis Family History Grandfather No problems noted. Father Hearing loss Heart disease Hypertension Mother Heart disease Hypertension Stroke Grandfather (Maternal) Family history of diabetes mellitus Other No family history of bleeding disorder Social History Smoking Status: Never smoker packs per day: 0.25; Years Smoked: 15; Second Hand Exposure: No; Hx Alcohol Use: Yes Alcohol type: wine and hard liquor Alcohol Intake Frequency Comment: 2 drinks 2-3x/month Hx Substance Use: No Preferred Language: Occitan Communication Ability: Effective Telegraph Messenger Required: No Beliefs That Will Affect Care: None marital status: Single Current Living Situation: Alone current occupational status: employed current occupation: Professor How many Children do You have: 0 Feels Safe at Home: Yes Assistive Devices: CPAP and Glasses Review of Systems Review of Systems: All systems reviewed & are unremarkable except as noted in HPI & below Physical Exam Physical Exam: General: patient resting comfortably, NAD, non-toxic in appearance, AA&O x 4 Skin: warm, dry, intact, no rashes or lesions HEENT: NC/AT, PERRL, EOMI, anicteric sclera, conjunctiva without injection, external ear normal to inspection and nontender, nares patent, moist mucus membranes, dentition intact, no oropharyngeal lesions, neck supple, trachea midline, no LAD, no thyromegaly, no JVD Heart: +S1/S2, regular, no m/r/g Lungs: equal air entry bilaterally, no rales/rhonchi/wheezes Abd: +BS, soft, NT/ND, no masses/organomegaly/ascites, tenderness of left low back Ext: warm, 2+ pulses in UE/LE bilaterally, no clubbing/cyanosis or edema Neuro: nonfocal, patient AA&O x 4, speech intact, no facial droop, moving all ex tremities on command with equal strength 5/5 Results & Data Results & Data ([facility]) Vital Signs (Past 12 Hours) Vital Signs Temp Pulse Pulse Resp BP BP Pulse Ox 03/12/22 00:18 104 H 16 134/83 95 03/11/22 21:09 93 H 22 154/101 H 96 03/11/22 20:02 87 16 155/104 H 96 03/11/22 19:41 87 18 94 03/11/22 19:04 36.8 C 102 H 20 142/90 H 94 Laboratory Results Laboratory Results WBC 11.26 K/uL (4.8-10.8) H 03/11/22 19:47 RBC 4.59 M/uL (4.2-5.4) 03/11/22 19:47 Hgb 13.7 g/dL (12.0-16.0) 03/11/22 19:47 Hct 41.7 % (37-47) 03/11/22 19:47 MCV 90.8 fL (80-100) 03/11/22 19:47 MCH 29.8 pg (25-34) 03/11/22 19:47 MCHC 32.9 g/dL (32-36) 03/11/22 19:47 RDW Std Deviation 47.1 fL (36.4-46.3) H 03/11/22 19:47 RDW Coeff of Ronny 14.3 % (11.5-14.5) 03/11/22 19:47 Plt Count 212 K/uL (130-400) 03/11/22 19:47 MPV 10.5 fL (7.4-10.4) H 03/11/22 19:47 Immature Gran % (Auto) 0.4 % 03/11/22 19:47 Neut % (Auto) 75.3 % 03/11/22 19:47 Lymph % (Auto) 9.1 % 03/11/22 19:47 [place] % (Auto) 13.2 % 03/11/22 19:47 Eos % (Auto) 1.7 % 03/11/22 19:47 Baso % (Auto) 0.3 % 03/11/22 19:47 Neut # (Auto) 8.49 K/uL (1.4-6.5) H 03/11/22 19:47 Lymph # (Auto) 1.02 K/uL (1.2-3.4) L 03/11/22 19:47 [place] # (Auto) 1.49 K/uL (0.11-0.59) H 03/11/22 19:47 Eos # (Auto) 0.19 K/uL (0-0.5) 03/11/22 19:47 Baso # (Auto) 0.03 K/uL (0-0.2) 03/11/22 19:47 Immature Gran # (Auto) 0.04 K/uL (0.00-0.02) H 03/11/22 19:47 Sodium 136 mmol/L (136-145) 03/11/22 19:47 Potassium 4.1 mmol/L (3.5-5.1) 03/11/22 19:47 Chloride 104 mmol/L (98-107) 03/11/22 19:47 Carbon Dioxide 24 mmol/L (21-32) 03/11/22 19:47 Anion Gap 8 (3-11) 03/11/22 19:47 BUN 16 mg/dl (6-23) 03/11/22 19:47 Creatinine 1.37 mg/dl (0.6-1.2) H 03/11/22 19:47 Est Cr Clr Drug Dosing 43.5 ml/min 03/11/22 19:47 Est GFR ( Amer) 48.1 ml/min 03/11/22 19:47 Est GFR (Non-Af Amer) 41.5 ml/min 03/11/22 19:47 BUN/Creatinine Ratio 11.7 (10-20) 03/11/22 19:47 Glucose 96 mg/dl (70-99(Fasting)) 03/11/22 19:47 Calcium 9.8 mg/dl (8.5-10.1) 03/11/22 19:47 Total Bilirubin 0.4 mg/dl (0.2-1.0) 03/11/22 19:47 AST 26 U/L (13-39) 03/11/22 19:47 ALT 29 U/L (7-52) 03/11/22 19:47 Alkaline Phosphatase 61 U/L (34-104) 03/11/22 19:47 Total Protein 6.9 gm/dl (6.0-8.3) 03/11/22 19:47 Albumin 4.1 gm/dl (3.4-5.0) 03/11/22 19:47 Globulin 2.8 gm/dl (2.5-4.0) 03/11/22 19:47 Albumin/Globulin Ratio 1.5 (0.9-2) 03/11/22 19:47 Lipase 25 U/L (11-82) 03/11/22 19:47 Urine Color Yellow 03/11/22 18:40 Urine Appearance Clear (Clear) 03/11/22 18:40 Urine pH 5.0 (4.5-7.5) 03/11/22 18:40 Ur Specific [place] 1.011 (1.000-1.030) 03/11/22 18:40 Urine Protein Negative (Negative) 03/11/22 18:40 Urine Glucose (UA) Negative (Negative) 03/11/22 18:40 Urine Ketones Negative (Negative) 03/11/22 18:40 Urine Blood Trace (Negative) H 03/11/22 18:40 Urine Nitrite Negative (Negative) 03/11/22 18:40 Urine Bilirubin Negative (Negative) 03/11/22 18:40 Urine Urobilinogen Negative (Negative) 03/11/22 18:40 Ur Leukocyte Esterase Trace (Negative) H 03/11/22 18:40 Urine WBC (Auto) 1-5 /hpf (0-5) 03/11/22 18:40 Urine RBC (Auto) 0-4 /hpf (0-4) 03/11/22 18:40 U Hyaline Cast (Auto) 0 /lpf (0-5) 03/11/22 18:40 U Epithel Cells (Auto) 10-20 /lpf (0-5) H 03/11/22 18:40 Urine Bacteria (Auto) Negative (Negative) 03/11/22 18:40 SARS-CoV-2, RNA, NAAT NEGATIVE (NEGATIVE) 03/12/22 00:[address] abdomen and pelvis with contrast: Per stat readthere is a 4 mm left ureterovesical junction calculus resulting in mild hydronephrosis and perinephric stranding. At the left ureterovesical junction there is thickening of the wall of the bladder. Recommend correlation with cystoscopy to exclude superimposed malignancy. The remaining solid organs are within normal limits. No bowel obstruction. Cholecystectomy. No fracture. PG Care Time/CCT Total # of Minutes Spent Total Time Spent with Patient: Total time spent is greater than 50% in coordination of care (as documented) at patient's floor/unit and/or counseling patient: Coding Level of Care Code 72736 Initial Inpt Care Lvl 3 Diagnoses Renal colic on left side N23 Ankylosing spondylitis M45.9 [place] ulcerative colitis K51.00 Psoriatic arthropathy L40.50 Depression F32.9 Hyperlipidemia E78.5 Hypertension I10 Hypothyroidism E03.9 MAGED (acute kidney injury) N17.9
[2022-03-12] MEDS ORDERED: MoRPHine SULFATE 2 MG/ML CARP IV PRN (02:55)
[2022-03-12] MEDS ORDERED: ACETAMINOPHEN 325 MG TAB PO PRN (02:55)
[2022-03-12] MEDS ORDERED: ONDANSETRON INJ 2 MG/ML 2 ML VIAL IV PRN (02:55)
[2022-03-12] MEDS ORDERED: DOCUSATE SODIUM 100 MG CAP PO PRN (02:55)
[2022-03-12] MEDS: LACTATED RINGER'S 1,000 ML IV SCH ×2 (03:00→12:56)
[2022-03-12] MEDS ORDERED: cefTRIAXone SODIUM 2,000 MG in DEXTROSE 5% 50 ML IV SCH (03:15)
[2022-03-12] MEDS: traMADol HCL 50 MG TABLET PO PRN ×2 (03:30→11:11)
[2022-03-12] MEDS ORDERED: LEVOTHYROXINE SODIUM 100 MCG TABLET PO SCH (06:30)
--- NOTE | 2022-03-12 07:44 | CT Scan Report ---
CT abd pelvis IV con only CLINICAL HISTORY: left flank pain COMPARISON STUDY: 09/10/2016 CT DOSE: 427.15 mGy.cm TECHNIQUE: Standard CT of the Abdomen and Pelvis was performed with IV contrast. A dose lowering alonzo hnique was utilized adhering to the principles of ALARA. Contrast Volume: Optiray 320, 94 ml. The patient did not receive oral contrast. FINDINGS: Lung base: The lung bases are clear. Abdominal cavity: There is no evidence for abdominal mass, adenopathy or ascites. Liver: There is homogeneous attenuation of the liver parenchyma. There is no evidence for enhancing m ass lesion. There is mild intrahepatic or duct dilatation which is most likely physiologic from previ ous cholecystectomy. Spleen: There is homogeneous attenuation of the splenic parenchyma. There is no enhancing mass lesion . Pancreas: There is homogeneous attenuation of the pancreatic parenchyma. There is no evidence for mas s lesion or peripancreatic fluid collection. Gall Bladder: The patient is again status post cholecystectomy with physiologic dilatation of the com mon bile duct and intrahepatic biliary duct radicles. This is unchanged. Adrenal glands: The adrenal glands are normal in size and attenuation. There is no evidence for enhan cing mass lesion. Kidneys and bladder: There is mild swelling of the left kidney when compared to the right with perine phric stranding present. There is moderate hydronephrosis and hydroureter present to the level of the left UVJ with an approximately 5 mm calculus present producing the obstruction at this site. Additio cristiana, there is abnormal mucosal thickening of the bladder wall posterolaterally on the left and the presence of a neoplastic process cannot be excluded. Follow-up is necessary. There is no evidence for right renal calculus or hydronephrosis. There is no evidence for enhancing m ass. Bowel: Fluid-filled loops of both large and small bowel are seen throughout the abdomen and pelvis wi thout evidence for disproportionate dilatation or obstruction. Findings are most characteristic of mi ld ileus versus gastroenteritis. There is no evidence for mass lesion. There are no inflammatory connor ges present. There is no evidence for free air. The appendix is not visualized. : There is no evidence for pelvic mass or adenopathy. There is no evidence for pelvic ascites. Vasculature: There is no evidence for aneurysmal dilatation of the abdominal aorta. Mild atherosclero tic calcification is present. Osseous structures: There is no acute osseous pathology. Mild degenerative facet joint disease is pre sent bilaterally. IMPRESSION: 1. 5 mm left UVJ calculus producing moderate left-sided hydronephrosis and hydroureter. 2. Adjacent wall thickening of the bladder posterolaterally on the left. Underlying malignancy cannot be excluded and follow-up is necessary. 3. Mild associated ileus versus gastroenteritis. 4. Additional nonacute findings are delineated above. ACT 112: Negative or not required by law. Electronically signed by: Marcell Dumont M.D. 03/12/2022 7:42 AM
[2022-03-12] MEDS ORDERED: GABAPENTIN 100 MG CAP PO SCH (09:00)
[2022-03-12] MEDS ORDERED: buPROPion XL 300 MG TABCR PO SCH (09:00)
--- NOTE | 2022-03-12 09:49 | Urology Progress Note ---
Date of Service March 12, 2022 Assessment & Plan (1) Renal colic on left side: (2) Calculus of distal left ureter: Plan: 62 yo F admitted for left flank pain secondary to 5 mm left UVJ stone and moderate hydroureteronephrosis. - Pt subjectively feeling better since arrival, pain is tolerable with PO pain medication. - Denies stone passage overnight. - She is afebrile, nontoxic, VSS. - No lab work pending at time of visit - BMP and CBC ordered stat. - UA on admission was not suspicious for infection, no urine culture pending - currently on IV Ceftriaxone. - Discussed options for stone management including trial of passage vs surgical intervention. - Reviewed surgical options including left ureteral stent placement while inpatient vs outpatient ESWL or URS-LL. - Ureteral stents were discussed as well as post-operative issues and pain management. - Will await AM labs to determine definitive plan. - Keep NPO and strain all urine. - Pt reassessed at 1050, Labs reviewed. - Pain is controlled at present. - Lab work reviewed - creatinine 0.83, WBC 6.77. - After further discussion with patient, she would like to proceed with trial of passage. - No Gu intervention planned today, okay to resume diet - discussed with hospitalist. - Will arrange outpatient follow-up with our service for stone management and f/u of CT. - Ok to d/c from perspective when medically stable. - Recommend home with Tamsulosin and prn analgesics. - will sign off, please contact with any additional questions or concerns. Admission and Anticipated Discharge Date Admission Date: March 12, 2022 Subjective Patient seen and examined at bedside this AM. She is awake, alert and resting in bed. Reports left flank/low back pain is currently very tolerable, rated 1/10 at present. She reports taking Ultram earlier this morning which provided relief. She is voiding without difficulty. No dysuria or hematuria. Notes some bladder pressure after voiding. No nausea or vomiting. No fever or chills. Offers no additional complaints at present. Review of Systems Constitutional: as per Subjective / HPI Eyes: + corrective lenses Ear, Nose, Mouth, Throat: no problem reported Respiratory: no dyspnea Cardiovascular: no chest pain Gastrointestinal: as per Subjective / HPI Genitourinary: as per Subjective / HPI Neurologic: no problem reported Psychiatric: no problem reported Physical Exam Constitutional: well developed and well nourished; no acute distress and not ill appearing Neck: normal visual inspection Respiratory: normal respiratory effort and able to speak in complete sentences; no respiratory distress and no labored breathing Cardiovascular: Extremities: no pedal edema Gastrointestinal (Abdomen): Inspection/Auscultation: abdomen normal to inspection; abdomen not distended Percussion/Palpation: abdomen soft; abdomen nontender and no guarding Neurologic: moves all extremities and awake Psychiatric: Orientation: alert, oriented x 3 and cooperative Eye Contact: good eye contact Genitourinary: no CVA tenderness Results & Data ([facility]) Vital Signs (Past 12 Hours) Vital Signs Temp Pulse Pulse Resp BP BP Pulse Ox 03/12/22 07:23 36.8 C 83 18 131/79 95 03/12/22 02:56 37.0 C 106 H 18 125/80 95 03/12/22 02:38 36.8 C 81 16 104/64 96 03/12/22 02:30 81 16 104/64 96 03/12/22 00:18 104 H 16 134/83 95 PG Care Time/CCT Total # of Minutes Spent Total Time Spent with Patient: Total time spent is greater than 50% in coordination of care (as documented) at patient's floor/unit and/or counseling patient: Coding Level of Care Code None Diagnoses Renal colic on left side N23 Calculus of distal left ureter N20.1
[2022-03-12 10:04] LABS: Hematocrit (blood only) 37.7 % (37-47); Hemoglobin 12.5 g/dL (12.0-16.0); Mean Corpuscular Volume 90.6 fL (80-100); Mean Platelet Volume 9.9 fL (7.4-10.4); Platelet Count 190 K/uL (130-400); RDW Coefficient of Variation 14.6 % (11.5-14.5); RDW Standard Deviation 48.3 fL (36.4-46.3); Red Blood Count 4.16 M/uL (4.2-5.4); White Blood Count 6.77 K/uL (4.8-10.8)
[2022-03-12 10:09] LABS: Mean Corpuscular Hgb Conc 33.2 g/dL (32-36)
[2022-03-12 10:25] LABS: Basophils # (auto) 0.03 K/uL (0-0.2); Basophils % (auto) 0.4 %; Eosinophils # (auto) 0.18 K/uL (0-0.5); Eosinophils % (auto) 2.7 %; Immature Granulocytes # (auto) 0.01 K/uL (0.00-0.02); Immature Granulocytes % (auto) 0.1 %; Lymphocytes # (auto) 1.55 K/uL (1.2-3.4); Lymphocytes % (auto) 22.9 %; Monocytes # (auto) 0.91 K/uL (0.11-0.59); Monocytes % (auto) 13.4 %; Neutrophils # (auto) 4.09 K/uL (1.4-6.5); Neutrophils % (auto) 60.5 %
[2022-03-12 10:27] LABS: Calcium 9.1 mg/dl (8.5-10.1); Creatinine Clr Calc Pharmacy 71.8 ml/min; Est GFR (African American) 88.2 ml/min; Est GFR (Non-African American) 76.1 ml/min
--- NOTE | 2022-03-12 12:15 | Discharge Summary ---
Date of Service March 12, 2022 Admission HPI Per Admitting Provider Janny Max is a pleasant 62-year-old female with history of ankylosing spondylitis, psoriatic arthritis and ulcerative colitis on Infliximab infusions q 8 weeks as well as hypertension, hyperlipidemia hypothyroidism presenting with left flank pain. Patient received her second Covid booster on Saturday. She reports having full body pain and joint pain on Saturday which resolved. When she woke this morning she had significant left flank pain which progressed throughout the day. Pain is nonradiating, located in the lower back on the left side, 10/10 in severity. She denies nausea/vomiting. Denies dysuria/hem aturia/hesitancy but does report some bladder pressure. Denies fevers but states that her body temperature is approximately 2 degrees higher than baseline (usually 97, measured at home this afternoon her temperature was 99.4). Patient with no prior history of renal stones. In the ER she is afebrile, mildly tachycardic at 105 otherwise hemodynamically stable. Work-up revealed mild elevation of WBC = 11.26, mild elevation of creatinine to 1.37 from baseline of 0.77. CT of the abdomen revealed a 4 mm left ureterovesicular calculus with mild hydronephrosis and stranding as well as bladder wall thickening. ER course: Normal saline solution, morphine 4 mg IV, Zofran 4 mg IV, acetaminophen 1000 mg p.o., hydromorphone 0.5 mg IV, tamsulosin 0.4 mg p.o. Urology adviced that patient should do a trial to see if the stone will pass, she recommended outpatient follow up with urology and also tamsulosin. patient was discharged in stable condition, to follow up with urology Principal Diagnosis kidney stone Discharge Exam The patient is awake, alert and oriented 3, well developed and well nourished, normocephalic and atraumatic, lying in bed and in no acute distress. HEENT--PERRL, EOMI, mucous membranes and oropharynx mildly dry Neck--supple. No JVD. No bruits. Thyroid normal, trachea midline, no adenopathy. Heart--normal S1 and S2. No murmurs, rubs or gallops. Lungs--clear bilaterally, no respiratory distress, no accessory muscle use. Abdomen--normal bowel sounds and soft. Mild epigastric and left sided abdominal pain Extremities--no cyanosis or clubbing. No edema. Dermatologic--normal skin turgor, normal color, no abnormal lymph nodes, no rash. Neurologic--cranial nerves II through XII grossly intact. Rheumatologic--normal range of motion. Psychiatric--normal affect. Discharge Data Allergies Allergy/AdvReac Type Severity Reaction Status Date / Time chocolate flavor Allergy Unknown HIVES Verified 03/11/22 23:26 Bactrim AdvReac Mild gas Verified 07/22/17 08:57 gluten AdvReac Unknown gluten Verified 03/11/22 23:26 intolerant Sulfa (Sulfonamide AdvReac Unknown Gastrointestinal Verified 03/11/22 23:26 Antibiotics) Upset sulfamethoxazole AdvReac Unknown Gastrointestinal Verified 03/11/22 23:26 Upset trimethoprim AdvReac Unknown Gastrointestinal Verified 03/11/22 23:26 Upset Consultations 03/11/22 23:44 ED Decision to Admit Stat 03/12/22 02:55 Consult Urology Routine Ordered Studies 03/11/22 19:14 CT abd pelvis IV con only Stat Hospital Course (1) Renal colic on left side: 62-year-old female presenting with 4 mm renal stone at left ureterovesicular junction, hydronephrosis and perinephric stranding. No prior history of renal stones. Patient is nontoxic in appearance. She is afebrile but does have an elevated WBC count of 11.26 with mild elevation of neutrophillymphocyte ratio. Patient is on immunosuppressive therapy with Infliximab Admit to medical Strain all urine IV fluids with LR at 125 mL/h x 2 L Zofran as needed for nausea Morphine as needed for pain Continue home tramadol 50 mg p.o. 3 times daily as needed Flomax 0.4 mg daily outpatient follow up with urology for trial of stone passage (2) MAGED (acute kidney injury): Creatinine = 1.37 from 0.77. Patient reports she is urinating without difficulty LR at 125 mL/h x 2 L Repeat chemistry showed normal Cr (3) Ankylosing spondylitis: Patient on infliximab (4) [place] ulcerative colitis: Patient on infliximab and mesalamine Continue home agents (5) Psoriatic arthropathy: Patient on infliximab and leflunomide Continue home therapies Continue gabapentin (6) Depression: Chronic. Well-controlled on medications Continue Wellbutrin 300 mg p.o. every morning Insomnia Continue trazodone 100 mg p.o. nightly (7) Hyperlipidemia: Chronic. On medications Continue Crestor (8) Hypertension: Blood pressure stable We will hold lisinopril in setting of mild creatinine elevation IV fluids with repeat labs in the morning (9) Hypothyroidism: Chronic. Stable. TSH = 0.928 on 09/13/2021 Continue Synthroid 100 mcg p.o. daily Check TSH with a.m. labs discharge home, follow up with urology Total Time Total Time Spent Total Time Spent (In Minutes): 35 Discharge Plan Discharge Items Patient Disposition: Home - Self-Care Reason For Visit: NEPHROLITHIASIS Discharge Diagnosis: kidney stone Condition on Discharge: Good Activity: Resume your previous activity Non-emergency contact: Primary Care Provider and Urologist Call non-emergency contact if: you have any medication questions and your symptoms worsen Follow-up/Referrals: Katharine Zamora DO [Primary Care Provider] - 03/14/22 8:10 am (We have made a follow up appointment for you at Dr. Zamora's office. If you are unable to keep this appointment please call the office at [phone]. ) Diet: Regular Addtl Attending Provider Instructions: please make appointment to follow up with your urologist Pending Studies at Discharge: No Stand-Alone Forms: My [facility] [employer], Smoking Cessation Medications and DC Order Prescriptions: New tamsulosin 0.4 mg capsule 0.4 mg PO DAILY Qty: 10 RF: 0 Continued Remicade 100 mg recon soln 100 mg IV UD RF: 0 rosuvastatin [Crestor] 20 mg tablet 20 mg PO HS RF: 0 vitamin B complex [B Complex-Vitamin B12] tablet 1 tab PO QAM RF: 0 trazodone 100 mg Tablet 100 mg PO HS RF: 0 lisinopril 10 mg Tablet 10 mg PO QAM RF: 0 cholecalciferol (vitamin D3) [Vitamin D3] 1,000 unit Capsule 1,000 unit PO HS RF: 0 valacyclovir [Valtrex] 1 gram Tablet 1,000 mg PO UD PRN (Reason: Cold Sores) RF: 0 leflunomide [Arava] 10 mg tablet 10 mg PO UD RF: 0 bupropion HCl [Wellbutrin XL] 300 mg Tablet Extended Release 24 Hr 300 mg PO QAM RF: 0 mesalamine 1.2 gram tablet,delayed release (DR/EC) 2.4 g PO BID RF: 0 tramadol 50 mg tablet 50 - 100 mg PO TID PRN (Reason: Pain) RF: 0 levothyroxine [Synthroid] 100 mcg tablet 100 mcg PO DAILYBB RF: 0 gabapentin 100 mg capsule 100 mg PO QAM RF: 0 metformin 500 mg tablet extended release 24 hr 1,000 mg PO . ON HOLD RF: 0 ipratropium bromide 42 mcg (0.06 %) spray,non-aerosol 2 spray intranasal HS RF: 0 Discharge Orders: Discharge Order (Routine); Ordered 03/12/22 Ordered By: William Lezama/Other Patient Handouts: Acute Kidney Failure Dc, ED Kidney Stone w/ Colic Admission Data Admit Date/Time: 03/12/22 00:59 Attending Provider: William Perez Admit Provider: Maria D Alegria Primary Care Provider: Katharine Zamora Other Providers: Maria D Alegria ; Hero Barba. Other Interventions: Discharge Summary Assessment (RN) Last Done: 03/12/22 11:25 Coding Level of Care Code D/C DAY MANAGEMENT >30 MINS Diagnoses Renal colic on left side N23 MAGED (acute kidney injury) N17.9 Ankylosing spondylitis M45.9 [place] ulcerative colitis K51.00 Psoriatic arthropathy L40.50 Depression F32.9 Hyperlipidemia E78.5 Hypertension I10 Hypothyroidism E03.9 Time Spent (min) 35
[2022-03-12] MEDS ORDERED: ROSUVASTATIN CALCIUM 20 MG TAB PO SCH (21:00)
[2022-03-12] MEDS ORDERED: LEFLUNOMIDE 10 MG TAB PO SCH (21:00)
[2022-03-12] MEDS ORDERED: traZODone HCL 100 MG TAB PO SCH (21:00)
[2022-03-12] MEDS ORDERED: IPRATROPIUM BROMIDE NASAL SPRAY 0.06% 15ML SCH (21:00)
[2022-03-13] MEDS ORDERED: LEFLUNOMIDE 10 MG TAB PO SCH (21:00)
== END 2022-03-12 13:32 | disposition home or self-care (01) | DRG 694 ==
LOC: ED 19:01 → INTOOBSV 03-12 00:59 → 3N 03-12 00:59 → SUATTDRO 03-12 00:59 → 3N 03-12 02:38